=== PATIENT | female | born 1980 | race Caucasian/White ===

== ENCOUNTER 2016-10-04 00:05 | Emergency (ER) | payer BC, OTHER ==
[2016-10-04] MEDS ORDERED: DILAUDID 1 MG/ML AMP ONE (01:44)
== END 2016-10-04 03:16 | disposition home or self-care (01) ==
LOC: ER 00:05
DX: M25.552 Pain in left hip (principal); M79.652 Pain in left thigh; M25.562 Pain in left knee; M25.572 Pain in left ankle and joints of left foot; M79.672 Pain in left foot
CPT/HCPCS: 36415; 80048; 82550; 85025; 85379; 85610; 85730; 96372